=== PATIENT | female | born 1955 | race Caucasian/White ===

== ENCOUNTER 2017-04-15 05:00 | Emergency (ER) | payer BC ==
[2017-04-15 03:32] LABS: BASOPHILS 0.1 %; BASOPHILS ABSOLUTE 0.01 10/3/uL (0.0-0.16); EOSINOPHILS 0.6 %; EOSINOPHILS ABSOLUTE 0.07 10/3/uL (0.0-0.53); ER CBC TAT 0 Hrs 05 Mins; HEMATOCRIT 48.9 % (36.0-48.0); HEMOGLOBIN 16.6 g/dL (12.0-16.0); IMMATURE GRANULOCYTES 0.2 %; IMMATURE GRANULOCYTES ABSOLUTE 0.02 10/3/uL (0.0-0.11); LYMPHOCYTES 23.9 %; LYMPHOCYTES ABSOLUTE 2.58 10/3/uL (0.67-4.30); MANUAL DIFF NO %; MEAN CORPUS HGB CONC 33.9 g/dL (32.0-36.0); MEAN CORPUSCULAR HEMOGLOB 30.1 pg (26.0-34.0); MEAN CORPUSCULAR VOLUME 88.7 fL (80-100); MONOCYTES 6.8 %; MONOCYTES ABSOLUTE 0.73 10/3/uL (0.21-1.20); NEUTROPHILS 68.4 %; NEUTROPHILS ABSOLUTE 7.39 10/3/uL (2.02-8.40); PLATELET COUNT 231 10/3/uL (150-400); RBC DISTRIBUTION WIDTH 13.1 % (12.0-16.0); RED CELL COUNT 5.51 10/6/uL (4.0-5.6); WHITE BLOOD CELLS 10.8 10/3/uL (4.5-10.5)
[2017-04-15 03:38] LABS: INTERNATIONAL NORMAL RATI 1.1 UNITS (-); PARTIAL THROMBO TIME 34.8 SEC (22.5-37.2); PROTIME (NOT ORD) 14.5 SEC (12.0-14.5)
[2017-04-15 03:50] LABS: CHEST PAIN PROFILE TAT 0 Hrs 23 Mins; CHLORIDE, SERUM 102 MMOL/L (96-112); CO2 (CARBON DIOXIDE) 33 MMOL/L (24-34); CREATININE 1.11 MG/DL (0.55-1.02); GFR AFRICAN AMERICAN 63 ML/MIN (>=60); GFR NON AFRICAN AMERICAN 54 ML/MIN (>=60); GLUCOSE, SERUM 124 MG/DL (60-99); SODIUM, SERUM 140 MMOL/L (135-148); TROPONIN I <0.02 NG/ML (<0.05)
[2017-04-15 03:52] LABS: BUN (BLOOD UREA NITROGEN) 25 MG/DL (6-23); CALCIUM, SERUM 10.2 MG/DL (8.5-10.4); POTASSIUM, SERUM 4.5 MMOL/L (3.5-5.3)
[~2017-04-15 05:00] MED LIST: ALEVE PO; ANUSOL-HC25 MG PR; APRES25 PO; ASAB PO; AUG875 PO; CARDCD240 PO; DIGITEK0.125 MG PO; DIGITEK0.25 MG PO; DITRO5 PO; ELIQUIS 5 MG TAB5 MG PO; FLAG500TAB PO; FLECAINIDE50 MG PO; FLONASE NAS; GLUCOPHAGE1000 MG PO; GLUCPH PO; HALF81 PO; HYDROCHLOROT12.5 MG PO; HYT2 PO; K500 PO; KDUR10 PO; L40 PO; LEVAQUIN750 MG PO; LOP25 PO; LOP50 PO; MEDROLPAK4 PO; METHOC750B PO; MOMUD PO; NAP500 PO; NEUR100 PO; NOLV10; NORCO1 TAB PO; NORV25 PO; PCET PO; PRIN10 PO; PROCTOFOAM1 AER PR; RESTASIS OPH; SINGULAIR1 PO; TUMSROLL PO; X5 PO; ZESTRIL10 MG PO; ZESTRIL20 MG PO; ZYRTEC ALLGY10 MG PO
[2017-04-27] MEDS ORDERED: CELEXA20 PO (10:10)
[2017-04-27] MEDS ORDERED: DIOVAN HC1 PO (10:12)
[2017-04-27] MEDS ORDERED: D 5000 PO (10:12)
[2017-04-27] MEDS ORDERED: NORCO1 TAB PO (10:13)
[2017-04-27] MEDS ORDERED: XANAX1 MG PO (10:15)
[2017-04-27] MEDS ORDERED: FLEXERIL5 MG PO (10:15)
== END 2017-04-15 05:56 | disposition home or self-care (01) ==
LOC: ER 05:00
PROVIDERS: Specialist
DX: I10 Essential (primary) hypertension (principal); R51 Headache; I48.91 Unspecified atrial fibrillation; Z88.5 Allergy status to narcotic agent; Z79.82 Long term (current) use of aspirin; Z79.891 Long term (current) use of opiate analgesic; Z79.899 Other long term (current) drug therapy
CPT/HCPCS: 70450; 71020; 80048; 83735; 84484; 85025; 85610; 85730; 93005; 99284

== ENCOUNTER 2017-04-29 10:56 | Inpatient (IN) | payer BC ==
[2017-04-28 12:18] LABS: BASOPHILS 0.1 %; BASOPHILS ABSOLUTE 0.01 10/3/uL (0.0-0.16); EOSINOPHILS ABSOLUTE 0.07 10/3/uL (0.0-0.53); HEMOGLOBIN 14.7 g/dL (12.0-16.0); IMMATURE GRANULOCYTES 0.1 %; IMMATURE GRANULOCYTES ABSOLUTE 0.01 10/3/uL (0.0-0.11); LYMPHOCYTES 29.7 %; MEAN CORPUS HGB CONC 33.7 g/dL (32.0-36.0); MEAN CORPUSCULAR HEMOGLOB 29.6 pg (26.0-34.0); MEAN CORPUSCULAR VOLUME 87.9 fL (80-100); MEAN PLATELET VOLUME 10.2 fL (9.2-13.0); MONOCYTES 8.3 %; MONOCYTES ABSOLUTE 0.59 10/3/uL (0.21-1.20); NEUTROPHILS 60.8 %; PLATELET COUNT 213 10/3/uL (150-400); RBC DISTRIBUTION WIDTH 13.3 % (12.0-16.0); RED CELL COUNT 4.96 10/6/uL (4.0-5.6); WHITE BLOOD CELLS 7.1 10/3/uL (4.5-10.5)
[2017-04-28 12:19] LABS: HEMATOCRIT 43.6 % (36.0-48.0); MANUAL DIFF NO %
[2017-04-28 12:24] LABS: PROTIME (NOT ORD) 13.2 SEC (12.0-14.5)
[2017-04-28 12:32] LABS: A/G RATIO 1.2 (0.7-1.9); ALBUMIN 3.6 G/DL (3.5-5.0); CALCIUM, SERUM 9.3 MG/DL (8.5-10.4); CHLORIDE, SERUM 105 MMOL/L (96-112); CO2 (CARBON DIOXIDE) 32 MMOL/L (24-34); CREATININE 1.12 MG/DL (0.55-1.02); GFR AFRICAN AMERICAN 62 ML/MIN (>=60); GFR NON AFRICAN AMERICAN 54 ML/MIN (>=60); GLUCOSE, SERUM 130 MG/DL (60-99); POTASSIUM, SERUM 3.9 MMOL/L (3.5-5.3); SGOT(AST) 14 U/L (5-40); SGPT(ALT) 20 U/L (5-65); SODIUM, SERUM 142 MMOL/L (135-148); TOTAL BILIRUBIN 0.6 MG/DL (0-1.2); TOTAL PROTEIN 6.6 G/DL (6.0-8.5)
[2017-04-28 12:33] LABS: ALKALINE PHOSPHATASE 70 U/L (45-117); BUN (BLOOD UREA NITROGEN) 18 MG/DL (6-23)
[2017-04-28 12:38] LABS: PREALBUMIN 24.8 MG/DL (17.0-43.0)
--- NOTE | ~2017-04-29 | OP ---
Record Of Operation [facility] [address] [place]. [address] NAME: RAYMOND OQUENDO : 59 STATUS : ADM IN PAT#: [id number] AGE: 61 ADM/REG DATE : 04/29/17 MR#: [id number] REPORT SERV DATE: 04/29/17 DICTATED BY: GALILEA WONG JR. DATE: 04/29/17 REPORT STATUS : Draft TRANSCRIBED BY: MIREYA DATE: 04/29/17 DATE OF PROCEDURE: 04/29/2017 BIOSTATISTICS DIRECTOR: Anabel Boykin. PROCEDURE: Repair of ventral/incisional hernia with mesh. PREOPERATIVE DIAGNOSIS: Ventral/incisional hernia. POSTOPERATIVE DIAGNOSIS: Ventral/incisional hernia. ANESTHESIA: General. INDICATIONS: The patient has had a previous adrenalectomy via the left subcostal incision. She developed herniation in the midline and repair is indicated. FINDINGS: On exploration of the abdomen, there was a hernia defect in the midline. This is somewhat oval in location. There was some fat within the hernia sac but no incarceration. There was also an adjacent small hernia at the umbilical region. After this was freed up, it was repaired with an underlay 10 x 15 cm and a prohybrid mesh graft with closure of the fascia over this. This also encompassed the umbilical region. No other significant findings were encountered. DESCRIPTION OF PROCEDURE: With adequate general anesthesia, the patient was placed in the supine position. The abdomen was prepped and draped sterilely. The midportion of the subcostal incision from the right side across the midline to the portion of the left was opened. The incision deepened down through the subcutaneous tissues. The hernia sac was encountered and dissected free of the surrounding tissues. The hernia sac was excised and then flaps were raised out to the lateral border of the rectus muscle on either side and superiorly and inferiorly in the region of the umbilicus. There were some adhesions which were dissected free to free up the defect. Then, the Zenapro Hybrid was utilized. Tacking sutures of 0 Novafil were placed on either side and these were brought through full thickness of the fascia with the Novapass suture passing device, and these were tied which secured the mesh in place. Relaxing incision had been made on the left side to facilitate closure in the midline of the fascia which was accomplished with a running 0 Novafil suture. Then, the wound was irrigated. A 19 Tristen drain was left in the subcutaneous space and brought out laterally. It was secured with a nylon suture. The wound was closed with subcutaneous 3-0 Vicryl and subcuticular Monocryl. An overlay negative pressure dressing was placed. The patient left the operating room in satisfactory condition. The estimated blood loss was 30 mL. ZACK/MIREYA Galilea Wong Record Of Operation [facility] [id number] [place]. [address] NAME: RAYMOND OQUENDO : 59 STATUS : ADM IN [facility]#: [id number] AGE: 61 ADM/REG DATE : 04/29/17 MR#: [id number] REPORT SERV DATE: 04/29/17 DICTATED BY: GALILEA WONG JR. DATE: 04/29/17 REPORT STATUS : Draft TRANSCRIBED BY: MIREYA DATE: 04/29/17 Shabana Glasgow / [id number] CC: Galilea Wong Jr., M.D.
--- NOTE | ~2017-04-29 | HP ---
History And Physical [address] [place]. [address] NAME: RAYMOND OQUENDO : 59 STATUS : ADM IN PAT#: [id number] AGE: 61 ADM/REG DATE : 04/29/17 MR#: [id number] REPORT SERV DATE: 04/29/17 DICTATED BY: GALILEA BELL JR. DATE: 04/29/17 REPORT STATUS : Draft TRANSCRIBED BY: MODL DATE: 04/29/17 DATE OF ADMISSION: 04/29/2017 CHIEF COMPLAINT: Ventral hernia. HISTORY OF PRESENT ILLNESS: This is a 61-year-old female. She had previous left adrenalectomy via left subcostal incision some 11 months ago. This was done for pheochromocytoma. She has had an uneventful recovery except she has developed swelling in the midline. Imaging did not initially show a definite hernia, but there was weakness of the area and clinical findings were consistent with ventral hernia. This has increased and was symptomatic and repair was indicated. PAST MEDICAL HISTORY: Remarkable for history of atrial fibrillation as well. MEDICATIONS: Listed include montelukast, flecainide, lisinopril, Flexeril, Eliquis, metoprolol, cetirizine. PAST SURGICAL HISTORY: As above. ALLERGIES: NONE/POSSIBLY PERCOCET. SOCIAL HISTORY: Occasional alcohol. Tobacco none. FAMILY HISTORY: Noncontributory. REVIEW OF SYSTEMS: GENERAL: Negative. SKIN: Negative. HEENT: Negative. RESPIRATORY: Negative. BREAST: Negative. CARDIOVASCULAR: As above. GI: As above. : Negative. MUSCULOSKELETAL: Negative. NEUROLOGIC: Negative. PSYCH: Negative. ENDOCRINE: Negative. HEME: Negative. PHYSICAL EXAMINATION: GENERAL: Shows a healthy-appearing female. HEENT: Head and neck exam shows pupils are equal and reactive. There are no icteric changes. The neck is supple. There is no mass or thyromegaly. LUNGS: Clear bilaterally. CARDIOVASCULAR: Show normal S1 and S2 without murmur. History And Physical [address] [place]. [address] NAME: RAYMOND OQUENDO : 59 STATUS : ADM IN PAT#: [id number] AGE: 61 ADM/REG DATE : 04/29/17 MR#: [id number] REPORT SERV DATE: 06/22/17 DICTATED BY: GALILEA BELL JR. DATE: 04/29/17 REPORT STATUS : Draft TRANSCRIBED BY: MIREYA DATE: 04/29/17 ABDOMEN: Soft. There is a healed subcostal incision. There is a reducible hernia defect in the midline. EXTREMITIES: Show no clubbing, cyanosis, or edema. NEUROLOGIC: Exam shows alert and oriented. No focal findings. Appropriate affect. IMPRESSION: 1. Ventral/incisional hernia. 2. History of pheochromocytoma. PLAN: We will proceed with repair of ventral hernia via an open approach. Details and risks were discussed with the patient. She understands and agrees. ZACK/MIREYA Galilea Bell Jr., M.D. / [id number] CC: Galilea Bell Jr., M.D.
[~2017-04-29 10:56] MED LIST changes: +CELEXA20 PO; +D 5000 PO; +DIOVAN HC1 PO; +FLEXERIL5 MG PO; +XANAX1 MG PO
[2017-04-30 06:23] LABS: BASOPHILS 0 %; EOSINOPHILS 0 %; IMMATURE GRANULOCYTES 0.2 %; IMMATURE GRANULOCYTES ABSOLUTE 0.03 10/3/uL (0.0-0.11); LYMPHOCYTES 8.1 %; LYMPHOCYTES ABSOLUTE 1.02 10/3/uL (0.67-4.30); MEAN CORPUS HGB CONC 34.6 g/dL (32.0-36.0); MEAN CORPUSCULAR HEMOGLOB 30.2 pg (26.0-34.0); MEAN CORPUSCULAR VOLUME 87.2 fL (80-100); MEAN PLATELET VOLUME 10.1 fL (9.2-13.0); MONOCYTES 2.9 %; MONOCYTES ABSOLUTE 0.36 10/3/uL (0.21-1.20); NEUTROPHILS 88.8 %; NEUTROPHILS ABSOLUTE 11.11 10/3/uL (2.02-8.40); PLATELET COUNT 218 10/3/uL (150-400); RBC DISTRIBUTION WIDTH 13.3 % (12.0-16.0); RED CELL COUNT 4.31 10/6/uL (4.0-5.6)
[2017-04-30 06:24] LABS: HEMATOCRIT 37.6 % (36.0-48.0); WHITE BLOOD CELLS 12.5 10/3/uL (4.5-10.5)
[2017-04-30 06:25] LABS: MANUAL DIFF NO %
[2017-04-30 06:29] LABS: BUN (BLOOD UREA NITROGEN) 18 MG/DL (6-23); CHLORIDE, SERUM 106 MMOL/L (96-112); CREATININE 1.04 MG/DL (0.55-1.02); GFR AFRICAN AMERICAN 68 ML/MIN (>=60); GFR NON AFRICAN AMERICAN 59 ML/MIN (>=60); POTASSIUM, SERUM 4.1 MMOL/L (3.5-5.3); SODIUM, SERUM 141 MMOL/L (135-148)
[2017-04-30 06:30] LABS: CO2 (CARBON DIOXIDE) 27 MMOL/L (24-34); GLUCOSE, SERUM 161 MG/DL (60-99)
[2017-05-01 07:03] LABS: BASOPHILS 0.1 %; BASOPHILS ABSOLUTE 0.01 10/3/uL (0.0-0.16); EOSINOPHILS 0.7 %; EOSINOPHILS ABSOLUTE 0.09 10/3/uL (0.0-0.53); HEMATOCRIT 37.7 % (36.0-48.0); HEMOGLOBIN 12.6 g/dL (12.0-16.0); IMMATURE GRANULOCYTES 0.2 %; IMMATURE GRANULOCYTES ABSOLUTE 0.03 10/3/uL (0.0-0.11); LYMPHOCYTES ABSOLUTE 2.65 10/3/uL (0.67-4.30); MANUAL DIFF NO %; MEAN CORPUS HGB CONC 33.4 g/dL (32.0-36.0); MEAN CORPUSCULAR HEMOGLOB 29.5 pg (26.0-34.0); MEAN CORPUSCULAR VOLUME 88.3 fL (80-100); MEAN PLATELET VOLUME 10.4 fL (9.2-13.0); MONOCYTES 7.8 %; MONOCYTES ABSOLUTE 1.03 10/3/uL (0.21-1.20); NEUTROPHILS 71.2 %; NEUTROPHILS ABSOLUTE 9.47 10/3/uL (2.02-8.40); PLATELET COUNT 183 10/3/uL (150-400); RBC DISTRIBUTION WIDTH 13.6 % (12.0-16.0); RED CELL COUNT 4.27 10/6/uL (4.0-5.6); WHITE BLOOD CELLS 13.3 10/3/uL (4.5-10.5)
[2017-05-01 07:15] LABS: CHLORIDE, SERUM 106 MMOL/L (96-112); CO2 (CARBON DIOXIDE) 31 MMOL/L (24-34); GFR AFRICAN AMERICAN 64 ML/MIN (>=60); GFR NON AFRICAN AMERICAN 55 ML/MIN (>=60); POTASSIUM, SERUM 4.3 MMOL/L (3.5-5.3); SODIUM, SERUM 140 MMOL/L (135-148)
[2017-05-01 07:16] LABS: BUN (BLOOD UREA NITROGEN) 22 MG/DL (6-23); GLUCOSE, SERUM 98 MG/DL (60-99)
[2017-05-01] MEDS ORDERED: NORCO1 TAB PO (10:47)
== END 2017-05-01 14:30 | disposition home or self-care (01) | DRG 355 ==
LOC: SDC/OF 10:56 → PACU 14:50 → 5SO 17:01
PROVIDERS: Specialist
PROC: 0WUF0JZ Supplement Abdominal Wall with Synthetic Substitute, Open Approach (ICD-10-PCS; principal; 2017-04-29 12:45)
DX: K43.9 Ventral hernia without obstruction or gangrene (principal); I48.2 Chronic atrial fibrillation; I10 Essential (primary) hypertension; Z79.899 Other long term (current) drug therapy; F41.9 Anxiety disorder, unspecified; Z88.5 Allergy status to narcotic agent
CPT/HCPCS: 36415; 80048; 80053; 82962; 83036; 83735; 84134; 85025; 85610; 85730; 86850; 86900; 86901; 87641; 88302; 93005; A9270-GY; C1781; J0690; J2250; J2270; J2405; J2550; J2710; J2795; J3010; J3475